=== PATIENT | female | born 1975 | race Caucasian/White ===

== ENCOUNTER → 2021-02-01 15:07 | Outpatient (CLI) | payer MEDICARE, MEDICAID, SELFPAY ==
--- NOTE | 2021-02-01 | DI.MRI.S_ITS ---
PROCEDURE: MR LUMBAR SPINE WO CON INDICATIONS: Radiculopathy, lumbar region TECHNIQUE: Noncontrast sagittal T1 spin echo and T2 fast echo, sagittal STIR, axial T1 and T2 fast spin echo through the lumbar spine. In cases with scoliosis, additional coronal T2 fast spin echo may be performed. COMPARISON: [facility], MR, L-SPINE WITHOUT CONTRAST, 09/30/2010, 16:38. FINDINGS: Image quality: Excellent. Alignment and Curvature: There are bilateral L5 pars defects with approximately 1.8 centimeter anterolisthesis of L4 on L5, increased from approximately 1.6 millimeters on the 09/30/2010 exam. Otherwise normal alignment. Vertebral body heights maintained. Bone Marrow: No suspicious focal marrow signal abnormality. Mild bone marrow edema at the opposing L5-S1 endplates. Spinal Cord: Normal position and appearance of the conus. Regional Soft Tissues: No prevertebral or paraspinous soft tissue mass. T12-L1: No spinal canal or neural foraminal stenosis. L1-L2: No spinal canal or neural foraminal stenosis. L2-L3: No spinal canal or neural foraminal stenosis. L3-L4: No spinal canal or neural foraminal stenosis. L4-L5: Disc bulge flattens the ventral thecal sac. Disc material displaces the bilateral descending L5 nerve roots within both subarticular zones. Foraminal components of the disc bulge and facet hypertrophy combine to produce mild bilateral neural foraminal stenosis. L5-S1: Pseudo bulge related to the anterolisthesis significantly displaces the descending S1 nerve roots within both subarticular zones. Neural foraminal collapse related to the spondylolisthesis combines with facet hypertrophy to produce severe bilateral neural foraminal narrowing. There is flattening and deformation of the bilateral exiting L5 nerve roots. IMPRESSION: 1. Bilateral L5 pars defects with grade 2 spondylolisthesis of L5 on S1, contributing to moderate-severe subarticular zone stenosis and severe bilateral neural foraminal stenosis at this level. Correlate for any corresponding L5 or S1 radicular symptoms. 2. Milder degenerative changes at L4-L5 without findings of focal nerve root impingement. Dictated by: Ryan Rebollar M.D. on 02/03/2021 at 9:00 Approved by: Ryan Rebollar M.D. on 02/03/2021 at 9:04
== END ==
PROVIDERS: PCP Family Medicine; Referring Provider Family Medicine; Visit Provider Family Medicine
DX: M54.16 Radiculopathy, lumbar region (principal)
CPT/HCPCS: 72148

== ENCOUNTER 2021-08-06 19:47 | Emergency (ER) | payer MEDICARE, MEDICAID, SELFPAY ==
[2021-08-06 20:01] VITALS: BP 175/91; PULSE 108; RESP 20; TEMP 36.6; O2SAT 97
--- NOTE | 2021-08-06 21:46 | ED.HA ---
HPI - Headache General Chief Complaint: Headache Stated Complaint: headache since wednesday Time Seen by Provider: 08/06/21 21:39 Source: patient Mode of arrival: Ambulatory History of Present Illness HPI Narrative: Patient is a 45-year-old female. On Wednesday she received her 2nd COVID vaccine. Since that time she has had body aches and headache. She does have a history of migraines she states this feels like a migraine. She has tried some Excedrin at home without any improvement. No rashes. No problems breathing. Related Data Home Medications Medication Instructions Recorded Confirmed atenolol 25 mg tablet 25 mg PO DAILY 06/12/20 08/29/20 hydrocodone 10 mg-acetaminophen 1 tab PO Q4H PRN 06/12/20 08/29/20 325 mg tablet Allergies Allergy/AdvReac Type Severity Reaction Status Date / Time Sulfa (Sulfonamide Allergy Mild Unverified 07/05/20 16:37 Antibiotics) Review of Systems Constitutional Constitutional: Reports headache(s) ENT Ears, Nose, Mouth, and Throat: Reports system reviewed and no additional complaints, except as documented and Reports headache(s) Cardiovascular Cardiovascular: Reports system reviewed and no additional complaints, except as documented Respiratory Respiratory: Reports system reviewed and no additional complaints, except as documented Gastrointestinal Gastrointestinal: Reports system reviewed and no additional complaints, except as documented Musculoskeletal Musculoskeletal: Reports system reviewed and no additional complaints, except as documented Integumentary/Breasts Skin/Breast: Reports system reviewed and no additional complaints, except as documented Neurologic Neurologic: Reports headache(s) Hematologic/Lymphatic On Anticoagulants: No Patient History Medical History ADHD (~2020) Cervical spine disease (~2020) Chronic back pain (~2020) Chronic pain Dysmenorrhea (~2015) Endometriosis (~2015) Fibromyalgia (~2020) Menorrhagia with regular cycle Migraines (~2020) Osteoarthritis (~2015) Osteoporosis (~2020) PTSD (post-traumatic stress disorder) (~2015) Scoliosis (~2019) Shoulder pain (~2020) Surgical History (Updated 07/04/20 @ 20:10 by Waleska Alicea) Anesthesia History of dental surgery (~2016) Family History (Updated 07/04/20 @ 20:12 by Waleska Alicea) Father Hypertension Mother Diabetes mellitus Fibroids Endometriosis Sister Endometriosis Fibroids Social History Smoking Status: Current every day smoker Smoking Status: Current every day smoker alcohol intake frequency: holidays/special occasions only Substance Use Type: does not use Exam Initial Vital Signs Initial Vital Signs: Vital Signs Temperature 98 F 08/06/21 20:01 Pulse Rate 108 H 08/06/21 20:01 Respiratory Rate 20 08/06/21 20:01 Blood Pressure 175/91 H 08/06/21 20:01 Pulse Oximetry 97 08/06/21 20:01 HENMT Head: normal to inspection and normocephalic Eyes General: appearance normal, both eyes and all related structures Resp Effort & Inspection: normal respiratory effort Cardio Rate: regular rate GI Inspection: normal to inspection Skin General: no rashes or lesions noted Neuro General: patient alert, patient awake and moves all extremities Extrem General: normal to inspection Psych Appearance: grossly normal Course Vital Signs Vital signs: Vital Signs - 8 hr 08/06/21 20:01 08/06/21 21:55 Temperature 98 F Pulse Rate 108 H 92 H Respiratory Rate 20 18 Blood Pressure 175/91 H 151/88 H Pulse Oximetry 97 98 MDM - Headache MDM Narrative Medical decision making narrative: Patient reported complete resolution of symptoms after treatment here in the ER. She is afebrile. I do have low suspicion for meningitis given her presentation and her exam feel that we can hold on further workup for now. Patient was given return precautions and follow-up instructions. She expressed understanding and agreement. Discharge Plan Departure Patient Disposition: Home Clinical Impression: Cervical muscle strain Instructions: DI for Whiplash Activity Restrictions/Additional Instructions: I do recommend you follow-up with your primary doctor. Continue to hold due your normal stretching and yoga exercises. Return to the emergency department for any new or worsening symptoms Prescriptions: No Action hydrocodone-acetaminophen 10-325 mg tablet 1 tab PO Q4H [id number] atenolol 25 mg tablet 25 mg PO DAILY 0RF Referrals: Ede Wisdom DO [Primary Care Provider] -
[2021-08-06 21:55] VITALS: BP 151/88; PULSE 92; RESP 18; O2SAT 98
== END 2021-08-06 21:57 | disposition home or self-care (01) ==
PROVIDERS: Emergency Provider Emergency Medicine; PCP Family Medicine
DX: S16.1XXA Strain of muscle, fascia and tendon at neck level, initial encounter (principal); F17.200 Nicotine dependence, unspecified, uncomplicated; V49.40XA Driver injured in collision with unspecified motor vehicles in traffic accident, initial encounter
CPT/HCPCS: 99281

== ENCOUNTER → 2021-10-24 15:55 | Outpatient (CLI) | payer MEDICARE, MEDICAID, SELFPAY ==
--- NOTE | 2021-10-24 | DI.CT.S_ITS ---
PROCEDURE: CT ANGIO HEAD with contrast, CT brain without contrast INDICATIONS: Migraine headaches TECHNIQUE: Helical axial CT of the brain was obtained before and after intravenous contrast injection utilizing an angiographic technique and reformatted in multiple planes. Radiation dose reduction was achieved utilizing automated exposure control and/or adjustment of the dose parameters according to patient's size. COMPARISON: None. FINDINGS: Image quality: Excellent. Anterior circulation: Intracranial internal carotid arteries are normal in size and flow. The flow within the paired anterior cerebral arteries is normal and symmetric. The flow within the middle cerebral arteries is normal and symmetric. The anterior communicating artery is seen. No aneurysms are seen. Posterior circulation: Visualized portions of the vertebral arteries demonstrate normal caliber, and join to form a normal appearing basilar artery. Flow within the posterior cerebral arteries is normal and symmetric. No aneurysms are seen. 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 The P2 segment is supplied by a widely patent posterior communicating artery. Remainder of the distal vasculature unremarkable. CSF spaces: Ventricles are normal in size and shape. Basal cisterns are patent. No extra-axial fluid collections. Brain: No midline shift. No intracranial bleeds or masses. Jimenez-white matter interface appears intact. Skull and face: Calvarium and facial bones appear intact, without suspicious lesions. Sinuses: Bilateral maxillary sinus retention cysts IMPRESSION: 1. Unremarkable CT angiogram of the brain. 2. Mild maxillary mucosal sinus disease Approved by: Reji Ram M.D. on 10/24/2021 at 17:03
== END ==
PROVIDERS: PCP Family Medicine; Referring Provider Family Medicine; Visit Provider Family Medicine
DX: G43.829 Menstrual migraine, not intractable, without status migrainosus (principal); J32.0 Chronic maxillary sinusitis
CPT/HCPCS: 70496; Q9967